=== PATIENT | male | born 1980 | race Caucasian/White ===

== ENCOUNTER 2021-10-25 11:46 | Emergency (ER) | payer BC ==
[2021-10-25] MEDS ORDERED: Diphtheria,Pertussis(Acell),Tetanus Vaccine 0.5 ML Syringe IM ONE (13:13)
[2021-10-25] MEDS ORDERED: Lidocaine 1% 5 ML VIAL INJECT ONE (13:13)
== END 2021-10-25 14:38 | disposition home or self-care (01) ==
LOC: MW.ED 11:46
DX: S81.812A Laceration without foreign body, left lower leg, initial encounter (principal); S81.012A Laceration without foreign body, left knee, initial encounter; S01.81XA Laceration without foreign body of other part of head, initial encounter; K08.89 Other specified disorders of teeth and supporting structures; Z23 Encounter for immunization; W18.39XA Other fall on same level, initial encounter; Y99.0 Civilian activity done for income or pay
CPT/HCPCS: 12002; 12011; 90471; 90715; 99283; 99283-25